=== PATIENT | female | born 1990 | race Caucasian/White ===

== ENCOUNTER 2018-02-14 21:07 | Emergency (ER) | payer OTHER ==
[~2018-02-14] VITALS: Ht 162.6 cm; Wt 62.1 kg
[2018-02-14] MEDS ORDERED: IBUP600 PO (23:54)
== END 2018-02-15 00:44 | disposition home or self-care (01) ==
LOC: ER 21:07
DX: S92.255A Nondisplaced fracture of navicular [scaphoid] of left foot, initial encounter for closed fracture (principal); S90.122A Contusion of left lesser toe(s) without damage to nail, initial encounter; W22.8XXA Striking against or struck by other objects, initial encounter
CPT/HCPCS: 29505; 73630; 99283